=== PATIENT | male | born 1945 | race Caucasian/White ===

== ENCOUNTER 2024-10-11 02:07 | Inpatient (IN) | payer MEDICARE, SELFPAY ==
[2024-10-10 21:24] VITALS: BMI 26.3
[2024-10-10 21:36] LABS: Glucose - Point of Care 226 mg/dl (70-99)
[2024-10-10 21:41] LABS: Hematocrit 34.6 % (39.0-52.0); Hemoglobin 11.8 g/dL (13.0-18.0); Mean Corp Hgb Conc. 34.1 g/dL (33.0-37.0); Mean Corpuscular Volume 88.5 fL (80.0-94.0); Nucleated Red Blood Cells % 0 % (-); Platelet Count 146 10^3/uL (130-400); Red Cell Dist. Width 13.5 % (11.5-14.5)
[2024-10-10 22:00] VITALS: BP 170/76
[2024-10-10 22:02] LABS: ALT (SGPT) 23 U/L (0-50); AST (SGOT) 17 U/L (17-59); Albumin 3.8 g/dl (3.5-5.0); Alkaline Phosphatase 76 U/L (38-126); Blood Urea Nitrogen 43 mg/dl (9-20); Calcium 9.2 mg/dl (8.4-10.2); Carbon Dioxide 20 mmol/L (22-30); Chloride 110 mmol/L (98-107); Estimated Creatinine Clearance 23 ml/min; Glucose 248 mg/dl (70-99); Potassium 6.0 mmol/L (3.5-5.1); Sodium 135 mmol/L (135-145); Total Protein 6.6 g/dl (6.3-8.2); eGFR 27.83
[2024-10-10 22:46] LABS: Urine Character Cloudy (Clear)
[2024-10-10 23:00] VITALS: BP 158/78
--- NOTE | 2024-10-10 23:12 | ED.GENMED ---
History of Present Illness
General
Chief Complaint: Urinary Symptoms
Source: patient
Exam Limitations: none
Time Seen by Provider: 10/10/24 22:17
Nursing documentation reviewed up to this point in time: agreed with
History of Present Illness
History of Present Illness:
The patient is an 79-year-old man with a past medical history of frequent UTIs who was found down by his daughter just prior to arrival. His daughter reports that she was unable to get a hold of him so went to his home to check up on him. His
daughter reports that she was able to see him through the window of his home trying to crawl down his steps. His daughter reports that she broke into his home because she was unable to get through the front door and when she got there, she reports
that her father made it down all the way to the bottom step and seemed to pass out. Patient reports that he does not believe he fell. Patient does have abrasions on his left knee which may have occurred while he was crawling down the steps.
Patient reports that he has been feeling weak for several days. He denies cough, sore throat, nausea, and vomiting. His daughter reports that he has been on multiple rounds of oral antibiotics for urinary tract infection. She reports the last
antibiotic was Bactrim. Patient was also recently evaluated by a urologist and underwent a cystoscope a few days ago for frequent UTIs. The patient arrives fully awake and denies headache, chest pain or shortness of breath.
Past History
Past History
ED Past Medical History: HTN, IDDM and Other (Frequent UTIs)
ED Past Surgical History: Other
Social History
Tobacco: Non-smoker
Alcohol: Other
Drug: None
Personal: Single
Living: alone
Employment: Other
Family History
Family History: Other
Review of Systems
Review of Systems
Allergies reviewed?: Yes
All Other Systems: ROS reviewed and negative except as documented in HPI and ROS
Constitutional: Reports fatigue and chills
EENT: Reports no symptoms
Respiratory: Reports no symptoms
Cardiac: Reports syncope
ABD/GI: Reports anorexia
: Reports no symptoms
Musculoskeletal: Reports no symptoms
Skin: Reports other (Abrasion left patellar area)
Neurological: Reports weakness (Generalized weakness)
Endocrine: Reports no symptoms
Hematologic/Lymphatic: Reports no symptoms
Psychiatric: Reports no symptoms
Phy Exam
Physical Exam
Physical Exam:
Physical Exam
General: no apparent distress, not acutely ill, atraumatic appearing face and head. No scalp contusions
Neck: supple. Nontender C-spine
Heart: s1/s2 regular rate and rhythm,
Lungs: no acute respiratory distress. clear bilaterally, no vertebral spine tenderness. No reproducible chest pain when taking a deep breath
Abdomen: normal bowel sounds. not tender. no CVAT
Neuro: alert and orientedx3. no focal neurological deficits, cranial nerves equal and symmetric bilaterally. Answers all questions appropriately
Skin: Mild skin abrasion left patella
Psychiatric: well kept. interactive and cooperative
Extremities: Nontender upper and lower extremities. Pelvis and hips nontender
Sepsis
Sepsis Screening
Sepsis Assessment: Sepsis Ruled Out
Sepsis Screen
Sepsis Screen: Sepsis Ruled Out
Date: 10/11/24
Time: 00:23
Course
Orders/Labs/Results
Orders:
Orders
10/10/24 21:25
Electrocardiogram (*1) Urgent
Reason for Study: Other
Other Reason for Exam: Possible Sepsis
Cardiac Monitoring- Treatment ONCE
EKG- Treatment ONCE
IV Insert/Care/Rem.- Treatment PRN
O2 Therapy [RESP] Urgent
Titrate/Wean O2 to maintain O2 sat greater than (%): 93
Special Instructions: TO MAINTAIN CONTINUOUS O2 SATS > OR = 93%
Pulse Ox/cont/shift [RESP] Urgent
Quantity: 1
Special Instructions: CONTINUOUS
10/10/24 21:33
CPK [Creatine Phosphokinase] Urgent
Complete Blood Count/With Diff Urgent
Comprehensive Metabolic Panel Urgent
Lactic Acid Q4H
Comment: ON ICE, CANCEL 2ND ORDER IF FIRST LACTIC ACID LEVEL <2
Urinalysis Reflex To Culture Urgent
Date Specimen was Collected: 10/10/24
Time Specimen was Collected: 21:25
Urine Microscopic Reflex Cult Urgent
Blood Culture Q20M
GALA Source: Blood/Venous
Specimen Description:
Comment: Urgent from separate sites. If patient screens positive for possible sepsis
Blood Culture Q20M
GALA Source: Blood/Venous
Specimen Description:
Comment: Urgent from separate sites. If patient screens positive for possible sepsis
Urine Culture Urgent
GALA Source: U
Specimen Description:
Date Specimen was Collected: 10/10/24
Time Specimen was Collected: 21:25
10/10/24 23:03
CT Abd/pel Without Iv Or Oral Urgent
Comment:
Reason For Exam: persistent UTI
Acetaminophen [Tylenol] 1,000 mg PO NOW STA
10/10/24 23:04
CR Chest - 2 Views Urgent
Comment:
Reason For Exam: fever
10/10/24 23:29
COVID-19 Antigen Urgent
Source: Nasal Swab
Troponin I Urgent
Influenza A+B Rapid Molecular Urgent
GALA Source: Nasal Swab
Specimen Description:
10/11/24 00:10
CefTRIAXone [Rocephin] 1,000 mg IV NOW STA
Abnormal Lab Results
10/10/24 10/10/24
21:33 21:34
RBC 3.91 L 10^6/uL
(4.70-6.10)
Hgb 11.8 L g/dL
(13.0-18.0)
Hct 34.6 L %
(39.0-52.0)
Absolute Neuts (auto) 7.0 H 10^3/uL
(1.4-6.5)
Absolute Lymphs (auto) 0.7 L 10^3/uL
(1.2-3.4)
Absolute Monos (auto) 0.8 H 10^3/uL
(0.1-0.6)
Neutrophils % 82.1 H %
(42.2-75.2)
Lymphocytes % 8.4 L %
(20.5-51.1)
Potassium 6.0 H mmol/L
(3.5-5.1)
Chloride 110 H mmol/L
(98-107)
Carbon Dioxide 20 L mmol/L
(22-30)
BUN 43 H mg/dl
(9-20)
Creatinine 2.3 H mg/dL
(0.7-1.3)
Glucose 248 H mg/dl
(70-99)
Ur Occult Blood Reflex 3+ A
(Negative)
Leukocyte Esterase Rfl 3+ A
(Negative)
Urine WBC (Reflex) >100 A /HPF
(0-5)
Urine Bacteria (Reflex) Moderate A
(Negative)
Urine Glucose 2+ A
(Negative)
Urine Albumin (Reflex) 4+ A
(Neg - Trace)
POC Glucose 226 H mg/dl
(70-99)
10/10/24 21:33
10/10/24 21:33
Vital Signs
Initial and Last Documented VS:
Initial Vital Signs
Pulse Resp
101 23
10/10/24 21:25 10/10/24 21:25
Last Documented Vital Signs
Temp Pulse Resp BP Pulse Ox
100.4 F H 88 23 124/68 96
10/10/24 21:26 10/11/24 00:00 10/11/24 00:00 10/11/24 00:00 10/10/24 23:45
MDM/Problems Addressed
Differential Diagnosis Includes:
Acute rhabdo, acute dehydration, acute on chronic UTI
MDM/Problems Addressed:
Patient complains of acute generalized weakness and found to have a fever
Chronic conditions affecting care:
Frequent chronic UTIs
Chronic conditions affecting care: DM
Acute Exacerbation and/or Progression of Chronic Illness:
Patient could have acute exacerbation of chronic UTI, causing generalized weakness and fatigue and fever
Patient is acutely hyperglycemic, likely due to not taking his insulin and having an infection
Acute Exacerbation and/or Progression of Chronic Illness: DM
*Radiology
Radiology exam reviewed: preliminary read by ED provider (Chest x-ray reviewed by me. No acute disease) and radiology read reviewed
*Pulse Oximetry
SaO2: 98
Oxygen Mode of Delivery: Room air
Patient hypoxic: no
*EKG
Interpreted by ED Provider?: Yes
Interpretation: abnormal
Comparison EKG: no comparison EKG present
Rate: normal
Rhythm: sinus
[place]: left axis deviation
Interval: normal interval
QRS Pattern: wide non-specific and left vent hypertrophy
Ischemia: non-specific ST changes
*Bus Van [employer] Interpretation
Rate: normal
Interpretation: normal
Rhythm: sinus
*Critical Care Note
Total Time (30-74mins, 75-104mins- exclusive of procedures): Not Applicable
Data Reviewed
Source: patient and family (Daughter who presents at bedside)
ED Attending Note
-
Portions of this chart may have been created with voice recognition software.� Occasional wrong word or��sound alike� substitutions may have occurred due to the inherent limitations of voice recognition software.
Discharge Plan
Departure
Patient Disposition: Admit
Date of Disposition: 10/10/24
Time of Disposition: 23:29
Admit to: Med/Surg
Presentation/result/management discussed w/ accepting MD/DO: Hospitalist
Patient with high blood pressure during this ER visit?: Yes
Condition: Good
Covid-19: Negative COVID-19
Discharge Problem:
Generalized weakness, Acute UTI, Acute renal failure
Referrals:
Wilfrid Biswas, [Family Provider, Family Practice]
Interventions
Interventions:
*Risk Screen - Suicide Last Done: 10/10/24 21:26
*General Assessment Last Done: 10/10/24 21:26
*Neglect/Abuse Screening Last Done: 10/10/24 21:26
*ED- Fall Risk Assessment Last Done: 10/10/24 21:26
*ED COVID-19 Vaccine History Last Done: 10/10/24 21:26
ED-Male Genitourinary Assessment Last Done: 10/10/24 21:26
Discharge Date and Time
Print Language: [place]
[2024-10-10 23:17] LABS: Urine Red Blood Cell None Seen /HPF (0-2); Urine White Cell >100 /HPF (0-5)
[2024-10-10] MEDS: TYLENOL 1000 MG PO (23:29)
[2024-10-11] VITALS (14 sets, daily range): BP systolic 91–184; BP diastolic 48–89; PULSE 81; O2SAT 96; BMI 26.1
[2024-10-11 00:11] LABS: COVID-19 Antigen Negative (Negative)
[2024-10-11] MEDS: ROCEPHIN 1000 MG IV (00:26)
[2024-10-11 00:29] LABS: Troponin I 0.071 ng/ml
--- NOTE | 2024-10-11 01:55 | HPS.HSE ---
Family Physician
-
Family Physician: Wilfrid Biswas
Chief Complaint
-
Weakness
History of Present Illness
Patient is an 79y M with PMH significant for hypertension and DM-II who presents to ED complaining of weakness, fatigue and possible syncope. History obtained from patient and his family at the bedside. Daughter states that she spoke with
patient last PM and he seemed his normal self. She was unable to get a hold of him all day today. She went to his house this evening and had to break in. She found him crawling down the stairs, confused / 'in and out of consciousness', cool /
clammy and ill-appearing. Patient had been incontinent of urine. Patient states that he did suffer a fall; however, he cannot recite details or note when the fall occurred. He states that he did not strike his head.
Patient has been having issues now for several months with recurrent UTIs.
He was most recently treated with Bactrim which finished about one week ago. Patient reports symptoms of intermittent dysuria, cloudy and malodorous urine. Symptoms improve on abx but hen recur once the medication is completed.
Patient was seen recently by Urology (Dr. Wang at [facility]) and had cystoscopy which was reportedly unremarkable (last week).
Medical History
Past Medical History
Past Medical History: Reports Other
Additional Past Medical History:
Hypertension
DM-II
Recurrent UTIs
BPH
Past Surgical History: Reports None
Social History
Tobacco: Former Smoker
Alcohol: Occasional
Drug: None
Living: Alone
Family History
Family History: Not pertinent
Allergies / Home Medications
Allergies reflects when Allergies were last updated in [employer].
Home Medications with original date entered in [employer]
Allergy/Medication List:
Allergies
Allergy/AdvReac Type Severity Reaction Status Date / Time
No Known Allergies Allergy Unverified 10/10/24 21:26
Home Medications
amlodipine 5 mg tablet 5 mg PO BID 10/11/24
atenolol 25 mg tablet 25 mg PO BID 10/11/24
glimepiride 1 mg tablet 3 mg PO DAILY 10/11/24
icosapent ethyl 1 gram capsule (Vascepa) 2 g PO BID 10/11/24
insulin degludec 100 unit/mL (3 mL) subcutaneous pen (Tresiba FlexTouch U-100 insulin) 50 unit SC HS 10/11/24
lisinopril 20 mg tablet 20 mg PO BID 10/11/24
rosuvastatin 5 mg tablet 5 mg PO HS 10/11/24
sildenafil 50 mg tablet 50 mg PO DAILY PRN ED 10/11/24
tamsulosin 0.4 mg capsule 0.4 mg PO DAILY 10/11/24
Review of Systems
-
History Source: Patient and Family
A 12 point ROS was completed and negative except as noted: Yes
Constitutional: Reports Fatigue; Denies Fever or Chills
EENT: Denies Sore Throat
Respiratory: Denies Cough or Trouble Breathing
Cardiac: Reports Syncope (possible?); Denies Chest Pain or Palpitations
Abdomen/GI: Reports Abdominal Pain; Denies Nausea, Vomiting, Diarrhea, Bloody Stools or Black Stools
: Reports Dysuria, Incontinence and Dark Urine; Denies Frequency
Musculoskeletal: Denies Joint Pain or Edema
Neurological: Reports Weakness; Denies Dizzy or Headache
Psych: Denies Depression or Anxiety
Physical Exam
Vital Signs
Vital Signs
Temp Pulse Resp BP Pulse Ox
100.4 F H 82 22 106/62 94
10/10/24 21:26 10/11/24 01:26 10/11/24 01:26 10/11/24 01:26 10/11/24 01:26
Physical Exam
General: Other (79y M in no acute distress. Appears fatigued.)
HEENT: Other (Dry MM. Neck supple.)
Respiratory: Clear; No Wheezes, Rales or Rhonchi
Cardiac: S1/S2, Regular Rhythm and Murmur (II/ KRISTYN)
GI: Soft, Non Tender, Non Distended and Normal Bowel Sounds
Musculoskeletal: No Clubbing, No Cyanosis and No Edema
Neuro: AO x 3
Laboratory Results
-
10/10/24 21:33
10/10/24 21:33
Laboratory Results
Lactic Acid Cancelled 10/11/24 01:30
Total Bilirubin 0.5 mg/dl (0.2-1.3) 10/10/24 21:33
AST 17 U/L (17-59) 10/10/24 21:33
ALT 23 U/L (0-50) 10/10/24 21:33
Alkaline Phosphatase 76 U/L (38-126) 10/10/24 21:33
Troponin I 0.071 ng/ml H* 10/10/24 23:29
Impression/Plan
-
A/P: Patient is an 79y M with PMH significant for hypertension and DM-II who presents to ED for evaluation of weakness after being 'found down' at home by his daughter.
UTI / Diverticulitis
Possible Colovesicular Fistula
Sepsis secondary to the above
- Admit for further evaluation and treatment.
- Patient presents with fever, tachycardia, tachypnea and UA consistent with infection.
- CT shows air in bladder (? related to cysto of one week ago?) and adjacent diverticulitis changes - ? colovesicular fistula.
- Certainly clinically c/w fistula with repeated / recurrent UTIs despite treatment.
- Review of pharmacy data indicates that patient has been on abx essentially uninterrupted since 05/31. (Bactrim and Macrobid multiple times each. Doxycycline. Augmentin)
- Zosyn for now - renally doses.
- Colorectal Surgery evaluation.
- CT with rectal contrast to evaluate for fistula.
- Follow fever curve, follow-up culture data.
- Follow for clinical improvement.
GWENDOLYN
Hyperkalemia
- SCr = 2.3 compared to recent baseline of 1.8 (which itself was noted to be elevated from his prior baseline).
- Renal impairment also seems new and coincident with urinary issues over the past few months.
- ? secondary to med effect / Bactrim with concurrent lisinopril, etc.
- Hold further nephrotoxic agents. Hold lisinopril acutely.
- IVF support overnight.
- Follow renal function for improvement and to establish a new, accurate baseline.
- CT done in the ED this evening with no evidence of obstruction, etc.
Found Down
Generalized Weakness
- Likely combination of acute / chronic infection, worsening renal function, med effects, etc.
- Treat infection, GWENDOLYN as noted above.
- Hold tamsulosin acutely (newly started in August).
- PT / OT evaluations.
Benign Hypertension
- Hold lisinopril as noted above.
- Holding parameters for amlodipine and atenolol.
- Adjust med regimen as needed for adequate control / avoidance of hypotension.
DM-II
- Stable. Hold sulfonylurea.
- Decrease basal insulin acutely. Follow and cover with SSI if needed.
- Update A1C.
- Concern for intermittent hypoglycemia given insulin / sulfonylureas and progressive decline in renal function.
Abnormal Troponin
- Patient with no complaints of chest pain, dyspnea, etc.
- EKG is without evidence of acute ischemia - with no prior tracings to compare.
- Follow troponin to peak. Suspect non-IN elevation due to infection, renal impairment, etc.
BPH
- Hold tamsulosin and Viagra.
- Bladder scan protocol.
DVT Prophylaxis: SCDs
Code Status: Full
--- NOTE | 2024-10-11 03:00 | PTCARENOTE ---
Patient admitted to floor via stretcher from ED. Patient c/o LE weakness. Daughter and granddaughter at bedside. Patient AAOx3, can be forgetful at times. Troponin drawn upon arrival to floor. K+ noted to be 6 in ED. No medication given, notified
JOSE MARTIN Biggs of K+. No new orders received at this time. BMP ordered for the am. Call easley and fall precautions reviewed with patient. Call easley left with in reach. Will continue to monitor.
[2024-10-11] MEDS: NSS 1000 IV ×3 (04:15→21:28)
[2024-10-11] MEDS: ZOSYN 50 IV ×4 (04:22→21:44)
--- NOTE | 2024-10-11 04:34 | PTCARENOTE ---
This RN TT house provider about pt's potassium level of 6.0 upon arrival to floor. No new orders given at this time. Instructed to wait and see potassium level at 0600 lab draw.
[2024-10-11 05:29] LABS: Troponin I 0.071 ng/ml
--- NOTE | 2024-10-11 06:16 | PTCARENOTE ---
Patient admitted to floor via stretcher from ED. Patient c/o LE weakness. Daughter and granddaughter at bedside. Patient AAOx3, can be forgetful at times. Troponin drwn upon arrival too
[2024-10-11 06:21] LABS: Glucose - Point of Care 179 mg/dl (70-99)
[2024-10-11] MEDS: TENORMIN 25 MG PO ×2 (08:03→21:30)
[2024-10-11] MEDS: NORVASC 5 MG PO ×2 (08:03→21:30)
--- NOTE | 2024-10-11 10:38 | CON.CRS ---
Consultation
-
Date/Time Consultation Requested: 10/11/2024, 03:43
Date/Time Consultation Performed: 10/11/2024, 09:30
Requesting Provider: Anibal Paz DO
Performing Provider: Ti Beverly MD
Reason for Consultation: diverticulitis
Medical History
-
Chief Complaint: weakness/fatigue
History of Present Illness:
79yo male with a history of recurrent UTIs and DM II presents to [place] ER with weakness, fatigue, and syncope. Patient's history mostly obatained from chart. The daughter had to break into his house last night as she was unable to get ahold of
him. He was crawling down the stairs and confused and was ill-appearing. He was also incontinent of urine. He had UTIs recently and has been treated with Bactrim. Last week he had a cystoscopy by Dr. Wang at [facility] which apparently showed no acute
findings.
In the ER his WBC is 8.5. His tmax was 100.4. He was started on IV zosyn. CT of the abdomen and pelvis shows mild pericolic stranding about the distal descending colon as well as diverticulosis concerning for early or mild acute diverticulitis.
Considering the posterior location, epiploic appendicitis is possible as well, although no fat containing lesion is noted. This may be sequela of previous infection/inflammation. No evidence of perforation or abscess formation. There is no history
of colonoscopy or prior CT in our system for comparison. Given the above findings, we have been consulted for further surgical opinion.
Past Medical History
Past Medical History: HTN, NIDDM and Other (UTIs, BPH)
Past Surgical History: None
Social History
Tobacco: Former Smoker
Alcohol: Occasional
Drug: None
Living: Alone
Family History
Family History: Reviewed & Not Pertinent
Allergies / Home Medications
Allergy/AdvReac Type Severity Reaction Status Date / Time
No Known Allergies Allergy Unverified 10/10/24 21:26
�Medication �Instructions �Recorded �Confirmed �Type
amlodipine 5 mg tablet 5 mg PO BID 10/11/24 10/11/24 History
atenolol 25 mg tablet 25 mg PO BID 10/11/24 10/11/24 History
glimepiride 1 mg tablet 3 mg PO DAILY 10/11/24 10/11/24 History
icosapent ethyl 1 gram capsule 2 g PO BID 10/11/24 10/11/24 History
(Vascepa)
insulin degludec 100 unit/mL (3 50 unit SC HS 10/11/24 10/11/24 History
mL) subcutaneous pen (Tresiba
FlexTouch U-100 insulin)
lisinopril 20 mg tablet 20 mg PO BID 10/11/24 10/11/24 History
rosuvastatin 5 mg tablet 5 mg PO HS 10/11/24 10/11/24 History
sildenafil 50 mg tablet 50 mg PO DAILY PRN ED 10/11/24 10/11/24 History
tamsulosin 0.4 mg capsule 0.4 mg PO DAILY 10/11/24 10/11/24 History
Review of Systems
-
History Source: Patient
Constitutional: Fatigue and Other (weakness, syncope)
: Incontinence
A 10 point review of systems was completed, and was negative except as per HPI.
Physical Exam
Vital Signs
Temp 100.1 F 10/11/24 07:55
Pulse 93 10/11/24 08:03
Resp Rate 17 10/11/24 07:55
Blood pressure 184/89 10/11/24 08:03
SaO2 98 10/11/24 07:55
10/10/24 10/11/24 10/12/24
06:59 06:59 06:59
Actual Weight 73.255 kg
Body Mass Index (BMI) 26.1
Lab Results / Allergies
WBC 8.5 10^3/uL (4.8-10.8) 10/10/24 21:33
Hgb 11.8 g/dL (13.0-18.0) L 10/10/24 21:33
Hct 34.6 % (39.0-52.0) L 10/10/24 21:33
Plt Count 146 10^3/uL (130-400) 10/10/24 21:33
Abs Immat Gran (auto) 0.0 10^3/uL (0-0.05) 10/10/24 21:
Neutrophils % 82.1 % (42.2-75.2) H 10/10/24 21:33
Allergy/AdvReac Type Severity Reaction Status Date / Time
No Known Allergies Allergy Unverified 10/10/24 21:26
Physical Exam
General: Well Developed, Well Nourished and No Apparent Distress
GI: Soft, Non Tender and Non Distended
Skin: Warm and Dry
Neuro: Awake
Data Reviewed
-
CT Scan: Image Personally Visualized and interpreted, Report Reviewed by me and Discussed with Patient
Labs: Labs Reviewed by me, Discussed with Physician and Discussed with Patient
Old Records: Reviewed
Assessment / Plan
-
Assessment: 79yo male with a history of recurrent UTIs recently on Bactrim presents to [place] ER with falls, syncope, weakness, and urinary incontinence, found to have possible diverticulitis
Plan:
-No plans for surgery at this time. No concerns for active diverticulitis.
-Continue with IV antibiotics/IVFs
-Diet: advance as tolerated
-Manage UTI at this time
-Outpatient follow up to rule out colovesical fistula with CT po/rectal/IV contrast and colonoscopy. Follow with Dr. Beverly in the office in 2 weeks.
--- NOTE | 2024-10-11 10:39 | W.PN.HOSP.TC ---
Today's Communication/Plan
-
Repeat CT scan of the abdomen and pelvis with rectal contrast to reevaluate for colovesicular fistula.
Empiric antibiotics pending cultures.
Colorectal surgery evaluation
Bladder scan.
Hold nephrotoxic agents including lisinopril.
Serial blood glucose monitoring while on reduced dose of insulin and off sulfonylurea.
Assessment / Plan
Assessment / Plan
A/P: Patient is an 79y M with PMH significant for hypertension and DM-II who presents to ED for evaluation of weakness after being 'found down' at home by his daughter.
UTI / Diverticulitis
Possible Colovesicular Fistula
Sepsis secondary to the above
- Patient presents with fever, tachycardia, tachypnea and UA consistent with infection.
- CT shows air in bladder (? related to cysto of one week ago?) and adjacent diverticulitis changes - ? colovesicular fistula.
- Certainly clinically c/w fistula with repeated / recurrent UTIs despite treatment.
- Review of pharmacy data indicates that patient has been on abx essentially uninterrupted since 05/31. (Bactrim and Macrobid multiple times each. Doxycycline. Augmentin)
- Zosyn for now - renally doses.
- Colorectal Surgery evaluation.
- CT with rectal contrast to evaluate for fistula.
- Follow fever curve, follow-up culture data.
- Follow for clinical improvement.
GWENDOLYN
Hyperkalemia
- SCr = 2.3 compared to recent baseline of 1.8 (which itself was noted to be elevated from his prior baseline).
- Renal impairment also seems new and coincident with urinary issues over the past few months.
- ? secondary to med effect / Bactrim with concurrent lisinopril, etc.
- Hold further nephrotoxic agents. Hold lisinopril acutely.
- Bladder scan
- IVF support overnight.
- Follow renal function for improvement and to establish a new, accurate baseline.
- CT done in the ED this evening with no evidence of obstruction, etc.
Found Down
Generalized Weakness
- Likely combination of acute / chronic infection, worsening renal function, med effects, etc.
-Neurologic exam with no focal findings
- Treat infection, GWENDOLYN as noted above.
- Hold tamsulosin acutely (newly started in August).
- PT / OT evaluations.
Benign Hypertension
- Hold lisinopril as noted above.
- Holding parameters for amlodipine and atenolol.
- Adjust med regimen as needed for adequate control / avoidance of hypotension.
DM-II
- Stable. Hold sulfonylurea.
- Decrease basal insulin acutely. Follow and cover with SSI if needed.
- Update A1C.
- Concern for intermittent hypoglycemia given insulin / sulfonylureas and progressive decline in renal function.
Abnormal Troponin
- Patient with no complaints of chest pain, dyspnea, etc.
- EKG is without evidence of acute ischemia - with no prior tracings to compare.
- Follow troponin to peak. Suspect non-SD elevation due to infection, renal impairment, etc.
BPH
- Hold tamsulosin and Viagra.
- Bladder scan protocol.
DVT Prophylaxis: SCDs
Code Status: Full
Anticipated Discharge: > 48 hours
Subjective/Interval History
-
Date of Service: October 11, 2024
Objective Data
-
Labs:
Laboratory Results
10/11/24
06:00
WBC Pending
Hgb Pending
Hct Pending
Plt Count Pending
Sodium Pending
Potassium Pending
Chloride Pending
Carbon Dioxide Pending
BUN Pending
Creatinine Pending
Glucose Pending
Calcium Pending
Vital Signs:
Vital Signs
Temp Pulse Resp BP Pulse Ox
100.1 F 93 17 184/89 98
10/11/24 07:55 10/11/24 08:03 10/11/24 07:55 10/11/24 08:03 10/11/24 07:55
Physical Exam
-
General: Well Developed and No Apparent Distress
HEENT: Normocephalic, Atraumatic and Moist Mucous Membranes
Respiratory: Clear to Auscultation
Cardiac: Regular Rhythm and S1/S2; Negative Murmur, Rub or Gallop
GI: Soft, Nontender, Nondistended and Normal Bowel Sounds; Negative Organomegaly
Rectal: Deferred by Provider
Musculoskeletal: No Clubbing, No Cyanosis and No Edema
Skin: Negative Rash
Neuro: Awake, Alert, Oriented, AO x 3 and Nonfocal/Grossly Intact
[2024-10-11 11:18] LABS: Blood Urea Nitrogen 48 mg/dl (9-20); Calcium 8.9 mg/dl (8.4-10.2); Carbon Dioxide 18 mmol/L (22-30); Chloride 113 mmol/L (98-107); Estimated Creatinine Clearance 22 ml/min; Glucose 215 mg/dl (70-99); Potassium 5.1 mmol/L (3.5-5.1); Sodium 139 mmol/L (135-145); eGFR 26.44
[2024-10-11 11:22] LABS: Troponin I 0.062 ng/ml
[2024-10-11 11:37] LABS: Glucose - Point of Care 228 mg/dl (70-99)
[2024-10-11 12:03] LABS: Hematocrit 34.5 % (39.0-52.0); Hemoglobin 11.4 g/dL (13.0-18.0); Mean Corp Hgb Conc. 33.0 g/dL (33.0-37.0); Mean Corpuscular Volume 87.8 fL (80.0-94.0); Platelet Count 143 10^3/uL (130-400); Red Cell Dist. Width 13.5 % (11.5-14.5)
[2024-10-11 12:30] LABS: Troponin I 0.058 ng/ml
[2024-10-11] MEDS: NOVOLOG FLEXPEN-LOW RESISTANCE 2 UNITS SC (13:16)
[2024-10-11 13:23] LABS: Glycohemoglobin (HgbA1c) 8.3 % (4.0-5.6)
--- NOTE | 2024-10-11 14:54 | PTCARENOTE ---
Lab informed this RN of critical lab value, positive blood cx in progress, made aware.
--- NOTE | 2024-10-11 15:36 | CON.ID ---
Consultation
-
Date/Time Consultation Requested: October 11, 2024 1515
Date/Time Consultation Performed: October 11, 2024 1540
Requesting Provider: Dr. Martín Peng
Performing Provider: Dr. Jazmine Woods
Reason for Consultation: Emphysematous cystitis
Chief Complaint / Past History
Chief Complaint
Urine frequency and weakness
History of Present Illness
History obtained from the patient as well as from daughter at bedside. He is an 79-year-old male with history of diabetes mellitus, hypertension, BPH who presented to the hospital October 10 when he was found down and confused. Per daughter
patient has been having symptomatic urinary tract infection since May 2024. Symptoms consistent of dysuria, frequency, malodorous cloudy urine. He was placed on multiple courses of antibiotics Bactrim, Macrobid, doxycycline, Augmentin almost
continuously. Symptoms but improved while on antibiotic. However few days after completion of antibiotic, urine symptoms would recur. Last week he had cystoscopy done and was told unremarkable. He finished a course of Bactrim last week.
Yesterday patient felt unwell and very weak. He was experiencing dysuria. He fell and unable to get up. He did not answer his doctor's call all day. When she went to his house last night, she found him on the ground crawling. He was confused.
He was brought to the ER with temperature 100.4. CT of the abdomen pelvis showed large amount of air in the bladder. There was concern for possible [place] vesicle fistula and therefore repeat CT of the abdomen pelvis with rectal contrast obtained
which showed persistent air within the bladder with multiple pockets of air within the bladder wall, many bladder diverticula; no contrast noted in the bladder/no fistula noted. Patient started on Zosyn. The admission blood culture is positive for
E. coli. Today patient reports he is feeling better. No flank pain.
Past History
Additional Past Medical History:
Diabetes mellitus
Hypertension
BPH
Recurrent UTI
Allergy History:
No Known Allergies Allergy (Unverified 10/10/24 21:26)
Medications Reviewed: Yes
Current Antibiotics:
Zosyn
Social History
Tobacco: Former Smoker
Alcohol: Occasional
Drug: None
Living: Alone
Family History
Family History: Not Pertinent
Review of Systems
Review of Systems
General: Fever, Chills and Change in Appetite
HEENT: Negative Sinus Problems, Headache or Pharyngitis
Cardiovascular: Negative Chest Pain or Dyspnea
Respiratory: Negative Dyspnea or Cough
Gasteroenterology: Negative Nausea, Vomiting or Diarrhea
Genital / Urological: Dysuria; Negative Flank Pain
Endocrine: Weakness and Fatigue
All systems: All other systems were reviewed and were negative
Vital Signs
Temp Pulse Resp BP Pulse Ox
98.0 F 84 17 152/77 99
10/11/24 11:00 10/11/24 11:27 10/11/24 11:00 10/11/24 11:27 10/11/24 11:00
Selected Entries
10/10/24
21:26
Temp 100.4 F H
Physical Exam
Physical Exam
Constitutional: Comfortable
Head: Other (No frontal or maxillary sinus tenderness)
Cardiovascular: Regular Rate and S1/S2
Pulmonary: Clear
Gastrointestinal: Soft, Non Tender, Non Distended and Normal Bowel Sounds
Genito-Urinary: Negative CVA Tenderness
Extremities: Negative Edema
Wound: Other (Abrasion over left knee)
Neurological: AO x 3
Lab / Diagnostic Study Results
10/11/24 11:50
10/11/24 10:40
Abs Immat Gran (auto) 0.0 10^3/uL (0-0.05) 10/10/24 21:33
Absolute Neuts (auto) 7.0 10^3/uL (1.4-6.5) H 10/10/24 21:33
Absolute Lymphs (auto) 0.7 10^3/uL (1.2-3.4) L 10/10/24 21:33
Absolute Monos (auto) 0.8 10^3/uL (0.1-0.6) H 10/10/24 21:33
Absolute Basos (auto) 0.0 10^3/uL (0-0.2) 10/10/24 21:33
Immature Gran % 0.5 % (0-0.5) 10/10/24 21:33
Neutrophils % 82.1 % (42.2-75.2) H 10/10/24 21:
Lymphocytes % 8.4 % (20.5-51.1) L 10/10/24 21:
Monocytes % 8.8 % (1.7-9.3) 10/10/24 21:
Eosinophils % 0.0 % (0-6) 10/10/24 21:
Basophils % 0.2 % (0-2) 10/10/24:
Lactic Acid Cancelled 10/11/24 01:30
Ur Squamous Epith Cells 6-10 /LPF (Few) 10/10/24 21:33
Microbiology Results
Micro:
10/10/24 21:33 Blood Culture - Preliminary
Blood/Venous Positive culture in progress
Gram Stain - Preliminary
10/10/24 23:29 Influenza Types A & B (SUELLEN) - Final
Nasal Swab Negative for Influenza A & B, NAAT
Negative results must be combined with clinical observations
and patient history.
Nucleic Acid Amplification test (NAAT)performed on the
[employer] platform.
10/10/24 21:33 Urine Culture - Pending
Urine
10/10/24 21:33 Blood Culture - Pending
Blood/Venous
10/11/24 CT a/p with rectal contrast: The urinary bladder is mildly distended. There is large amount of air within the bladder. There are multiple pockets of air within the bladder wall. There are many small bladder diverticula. The prostate gland is
mildly enlarged.
10/10/24 CT a/p wo contrast: Large volume of air in the bladder possibly due to recent instrumentation. There is no such history, this raises concern for infection. Questionable air in the bladder wall versus small bladder diverticula. Emphysematous
cystitis cannot be excluded. Numerous bladder diverticula.
Assessment / Plan
#Complicated UTI/emphysematous cystitis
# E. coli bacteremia from UTI
# Fever
-Urine culture pending
- Will repeat blood cultures x 2 in a.m.
- Can continue with Zosyn pending culture data
-Trend temp/WBC
# Conditions [facility] REPRESENTATIVE
Diabetes mellitus
Hypertension
BPH
Recurrent UTI
[2024-10-11 17:41] LABS: Glucose - Point of Care 186 mg/dl (70-99)
[2024-10-11] MEDS: NOVOLOG FLEXPEN-LOW RESISTANCE 1 UNITS SC (18:11)
[2024-10-11] MEDS: TYLENOL 650 MG PO (18:13)
[2024-10-11] MEDS: LANTUS 0.2 UNITS SC (21:36)
[2024-10-11 21:38] LABS: Glucose - Point of Care 186 mg/dl (70-99)
[2024-10-12] VITALS (7 sets, daily range): BP systolic 130–166; BP diastolic 56–87; PULSE 67–68; BMI 26.3
[2024-10-12] MEDS: ZOSYN 50 IV ×4 (04:23→22:43)
[2024-10-12] MEDS: NSS 1000 IV (04:25)
[2024-10-12 08:21] LABS: Glucose - Point of Care 130 mg/dl (70-99)
[2024-10-12] MEDS: NOVOLOG FLEXPEN-LOW RESISTANCE SC (08:25)
[2024-10-12] MEDS: TENORMIN 25 MG PO ×2 (08:27→20:07)
[2024-10-12] MEDS: NORVASC 5 MG PO ×2 (08:28→20:07)
[2024-10-12] MEDS: TYLENOL 650 MG PO ×2 (08:28→20:05)
--- NOTE | 2024-10-12 10:01 | W.PN.HOSP.TC ---
Today's Communication/Plan
-
Continue antibiotic for now, pending final urine culture and sensitivity
Assessment / Plan
Assessment / Plan
Impression:
patient is an 79y M with PMH significant for hypertension and DM-II who presents to ED for evaluation of weakness after being 'found down' at home by his daughter.
Assessment/plan:
UTI / Diverticulitis
E. coli Bacteriemia
Sepsis secondary to the above
- Patient presents with fever, tachycardia, tachypnea and UA consistent with infection.
- CT shows air in bladder (? related to cysto of one week ago?) and adjacent diverticulitis changes - ? colovesicular fistula.
- Certainly clinically c/w fistula with repeated / recurrent UTIs despite treatment.
- Review of pharmacy data indicates that patient has been on abx essentially uninterrupted since 05/31. (Bactrim and Macrobid multiple times each. Doxycycline. Augmentin)
- Zosyn for now - renally doses.
- Colorectal Surgery evaluation.
- CT with rectal contrast to evaluate for fistula which came back shows: No evidence of colovesical fistula.
Persistent findings which can be seen with emphysematous cystitis. Bladder diverticula.
- Follow fever
Blood culture positive for E. coli, urine culture positive for gram-negative rods.
Appreciate infectious disease input
GWENDOLYN
Hyperkalemia
Follow labs, avoid neurotoxic
Lisinopril on hold
Status post fall
Patient with Generalized Weakness, found down by his daughter
- Likely combination of acute / chronic infection, worsening renal function, med effects, etc.
-Neurologic exam with no focal findings
- Treat infection, GWENDOLYN as noted above.
- Hold tamsulosin acutely (newly started in August).
- PT / OT evaluations.
Benign Hypertension
- Hold lisinopril as noted above.
- Holding parameters for amlodipine and atenolol.
- Adjust med regimen as needed for adequate control / avoidance of hypotension.
DM-II
- Stable. Hold sulfonylurea.
- Decrease basal insulin acutely. Follow and cover with SSI if needed.
-Hemoglobin A1c 8.3
- Concern for intermittent hypoglycemia given insulin / sulfonylureas and progressive decline in renal function.
Abnormal Troponin
- Patient with no complaints of chest pain, dyspnea, etc.
- EKG is without evidence of acute ischemia - with no prior tracings to compare.
- Follow troponin to peak. Suspect non-AK elevation due to infection, renal impairment, etc.
BPH
- Hold tamsulosin and Viagra.
- Bladder scan protocol.
CODE STATUS: Full code
DVT prophylaxis: Lovenox
Diet: Regular diet
Communication: Discussed with significant other at bedside.
Disposition: Continue antibiotic for now, pending final urine culture and sensitivity
Total time spent on today's encounter was 65 minutes which included time spent in counseling the patient/family regarding diagnosis and treatment plan as listed above, goals of care, and symptom management. Case was discussed with nursing staff,
specialists, and care coordinators/case management. All labs and imaging personally reviewed by me. Remainder the time spent in detailed review of previous records, lab data, imaging, and other medical provider documentation.
Anticipated Discharge: 24 - 48 hours
Subjective/Interval History
-
Date of Service: October 12, 2024
Patient seen and examined at bedside, denies any chest pain or shortness of breath, no abdominal pain, no nausea, no vomiting, no diarrhea or constipation.
Discussed with family at bedside.
Objective Data
-
Vital Signs:
Vital Signs
Temp Pulse Resp BP Pulse Ox
98.7 F 79 17 151/87 96
10/12/24 07:00 10/12/24 08:27 10/12/24 07:00 10/12/24 08:27 10/12/24 07:00
I&O
10/11/24 10/12/24 10/13/24
06:59 06:59 06:59
Intake Total 2495 / 2495
Output Total 1170 / 1170
Balance 1325 / 1325
Physical Exam
-
General: Well Developed, Well Nourished, No Apparent Distress and Comfortable
HEENT: Normocephalic, Atraumatic, Moist Mucous Membranes, No Ptosis, PERRLA and Nose Appears Normal
Respiratory: Clear to Auscultation and Non Labored Respirations
Cardiac: Regular Rhythm and S1/S2
Breast: Deferred by me
GI: Soft, Nontender, Nondistended and Normal Bowel Sounds
Genito-urinary: No Costovertebral Tender
Musculoskeletal: No Clubbing, No Cyanosis and No Edema
Skin: Warm
Neuro: Awake, Alert, Oriented, AO x 3 and No Motor Deficits
Psych: Calm
Data Reviewed
-
Diagnostic Radiology: Image personally visualized and interpreted and Report Reviewed by me
CT Scan: Image personally visualized and interpreted and Report Reviewed by me
Ultrasound: Image personally visualized and interpreted and Report Reviewed by me
MRI: Image personally visualized and interpreted and Report Reviewed by me
Medical Tests (Nuc Med, Echo etc): Image personally visualized and interpreted and Report Reviewed by me
Labs: Labs Reviewed by me
Old Records: Reviewed
[2024-10-12 11:39] LABS: Glucose - Point of Care 210 mg/dl (70-99)
--- NOTE | 2024-10-12 11:45 | PTCARENOTE ---
Pt c/o increased anxiety and stated, 'I am unable to take deep breathes'. Pt requested medication to help her sleep. Pt made aware that it is daytime. Pt requested anxiety medication. MD made aware.
[2024-10-12] MEDS: NOVOLOG FLEXPEN-LOW RESISTANCE 2 UNITS SC ×2 (12:33→17:10)
--- NOTE | 2024-10-12 14:41 | W.PN.ID1 ---
Date of Service
Date of Service: October 12, 2024
Today's Communication
Continue Zosyn for now.
Assessment / Plan
#Complicated UTI/emphysematous cystitis
# E. coli bacteremia from UTI
# Fever - resolved
-Urine culture GNR
- Will repeat blood cultures x 2 pending
-continue with Zosyn pending final culture data
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
Diabetes mellitus
Hypertension
BPH
Recurrent UTI
Chief Complaint
-: UTI and Bacteremia
Subjective / Review of Systems
Feels much improved. Urine symptoms resolved.
Vital Signs / Physical Exam
Vital Signs
Vital Signs
Temp Pulse Resp BP Pulse Ox
98.2 F 67 16 142/77 94
10/12/24 11:00 10/12/24 11:00 10/12/24 11:00 10/12/24 11:00 10/12/24 11:00
Physical Exam
Constitutional: No Acute Distress and Comfortable
Cardiovascular: Regular Rate and S1/S2
Pulmonary: Clear
Gastrointestinal: Soft, Non Tender and Non Distended
Genito-Urinary: Negative CVA Tenderness
Neurological: AO x 3
Objective Data
Lab Data
Lab Results
10/11/24 11:50
10/11/24 10:40
Estimated Creat Clear 22 ml/min 10/11/24 10:40
Lactic Acid Cancelled 10/11/24 01:30
Total Bilirubin 0.5 mg/dl (0.2-1.3) 10/10/24 21:33
AST 17 U/L (17-59) 10/10/24 21:33
ALT 23 U/L (0-50) 10/10/24 21:33
Alkaline Phosphatase 76 U/L (38-126) 10/10/24 21:33
Most recent labs reviewed.
Micro Results:
10/10/24 21:33 Urine Culture - Preliminary
Urine Gram negative bacilli
10/10/24 21:33 Blood Culture - Preliminary
Blood/Venous Escherichia coli
Gram Stain - Preliminary
10/12/24 08:16 Blood Culture - Pending
Blood/Venous
10/12/24 05:14 Blood Culture - Pending
Blood/Venous
10/10/24 21:33 Blood Culture - Preliminary
Blood/Venous No Growth in 24 hours- Final report to follow
10/10/24 23:29 Influenza Types A & B (SUELLEN) - Final
Nasal Swab Negative for Influenza A & B, NAAT
Negative results must be combined with clinical observations
and patient history.
Nucleic Acid Amplification test (NAAT)performed on the
[employer] platform.
10/11/24 CT a/p with rectal contrast: The urinary bladder is mildly distended. There is large amount of air within the bladder. There are multiple pockets of air within the bladder wall. There are many small bladder diverticula. The prostate gland is
mildly enlarged.
10/10/24 CT a/p wo contrast: Large volume of air in the bladder possibly due to recent instrumentation. There is no such history, this raises concern for infection. Questionable air in the bladder wall versus small bladder diverticula. Emphysematous
cystitis cannot be excluded. Numerous bladder diverticula.
--- NOTE | 2024-10-12 16:51 | PTCARENOTE ---
Pt had large, loose BM. made aware, new order provided, see MAR.
[2024-10-12 16:54] LABS: Glucose - Point of Care 217 mg/dl (70-99)
[2024-10-12] MEDS: VISBIOME 2 CAP PO (17:11)
[2024-10-12 21:31] LABS: Glucose - Point of Care 199 mg/dl (70-99)
[2024-10-12] MEDS: LANTUS 0.2 UNITS SC (22:42)
[2024-10-13 03:00] VITALS: BP 149/73
[2024-10-13] MEDS: ZOSYN 50 IV (04:23)
[2024-10-13 05:54] LABS: Hematocrit 31.1 % (39.0-52.0); Hemoglobin 10.3 g/dL (13.0-18.0); Mean Corp Hgb Conc. 33.1 g/dL (33.0-37.0); Mean Corpuscular Volume 87.6 fL (80.0-94.0); Platelet Count 154 10^3/uL (130-400); Red Cell Dist. Width 13.4 % (11.5-14.5)
[2024-10-13 06:00] VITALS: BMI 26.2
[2024-10-13 06:34] LABS: Blood Urea Nitrogen 33 mg/dl (9-20); Calcium 8.4 mg/dl (8.4-10.2); Carbon Dioxide 19 mmol/L (22-30); Chloride 115 mmol/L (98-107); Estimated Creatinine Clearance 28 ml/min; Glucose 129 mg/dl (70-99); Potassium 3.9 mmol/L (3.5-5.1); Sodium 140 mmol/L (135-145); eGFR 35.00
[2024-10-13 07:38] VITALS: BP 163/78
[2024-10-13 07:47] LABS: Glucose - Point of Care 121 mg/dl (70-99)
[2024-10-13] MEDS: NOVOLOG FLEXPEN-LOW RESISTANCE SC ×2 (07:47→12:10)
[2024-10-13] MEDS: VISBIOME 2 CAP PO (08:42)
[2024-10-13] MEDS: NORVASC 5 MG PO (08:43)
[2024-10-13] MEDS: TENORMIN 25 MG PO (08:43)
--- NOTE | 2024-10-13 09:55 | W.PN.ID1 ---
Date of Service
Date of Service: October 13, 2024
Today's Communication
-DC Zosyn.
- Give cipro 500mg po x 1 today then dc home on cipro 500mg po daily (10/14 through 10/24/24).
Assessment / Plan
#Complicated UTI/emphysematous cystitis
# E. coli bacteremia from UTI
# Fever - resolved
-Urine culture E. coli (resistant to t/sulfa, Augmentin, doxycycline pt previously received)
- repeat blood cultures x 2 neg to date
-DC Zosyn.
- Give cipro 500mg po x 1 today then dc home on cipro 500mg po daily (10/14 through 10/24/24).
# Conditions [employer]
Diabetes mellitus
Hypertension
CKD3
BPH
Recurrent UTI
Chief Complaint
-: UTI and Bacteremia
Vital Signs / Physical Exam
Vital Signs
Vital Signs
Temp Pulse Resp BP Pulse Ox
97.1 F 69 16 163/78 98
10/13/24 07:38 10/13/24 08:43 10/13/24 07:38 10/13/24 08:43 10/13/24 07:38
Objective Data
Lab Data
Lab Results
10/13/24 05:14
10/13/24 05:14
Estimated Creat Clear 28 ml/min 10/13/24 05:14
Lactic Acid Cancelled 10/11/24 01:30
Total Bilirubin 0.5 mg/dl (0.2-1.3) 10/10/24 21:33
AST 17 U/L (17-59) 10/10/24 21:33
ALT 23 U/L (0-50) 10/10/24 21:33
Alkaline Phosphatase 76 U/L (38-126) 10/10/24 21:33
Most recent labs reviewed.
Micro Results:
10/10/24 21:33 Urine Culture - Final
Urine Escherichia coli
10/10/24 21:33 Blood Culture - Preliminary
Blood/Venous Escherichia coli
Gram Stain - Preliminary
10/12/24 08:16 Blood Culture - Preliminary
Blood/Venous No Growth in 24 hours- Final report to follow
10/12/24 05:14 Blood Culture - Preliminary
Blood/Venous No Growth in 24 hours- Final report to follow
10/10/24 21:33 Blood Culture - Preliminary
Blood/Venous No Growth in 48 hours- Final report to follow
10/10/24 23:29 Influenza Types A & B (SUELLEN) - Final
Nasal Swab Negative for Influenza A & B, NAAT
Negative results must be combined with clinical observations
and patient history.
Nucleic Acid Amplification test (NAAT)performed on the
[employer] platform.
RUN DATE: 10/13/24 [facility] *LIVE* PAGE 1
RUN TIME: 0954 Specimen Inquiry
PATIENT: DUGLAS WATKINS LOC: [facility] U #: [id number]
AGE/SX: 79/M Race: WHITE ROOM: 339 RE10/11/[address]: Saray Fair MD : 1945 BED: 01 DIS:
STATUS: ADM IN TLOC:
SPEC #: [id number] [place]: 10/10/24 STATUS: RES REQ #: [id number]
RECD: 10/10/[address]: Carlos East DO
SOURCE: BLOOD/VE ENTR: 10/10/24-[address]: Dept [facility]
SPDESC:
ORDERED: Blood Culture, Gram Stain-bld
QUERIES: Comment
Urgent from separate sites. If patient screens positive for possible sepsis
Procedure Result Verified
Blood Culture Preliminary 09/
Positive for Escherichia coli.
Performed by [employer] PCR methodology.
Organism 1 Escherichia coli
1. Escherichia coli
M.I.C. RX
--------- ---
Amoxicillin/Potas. Clavulanate 16/8 I
Ampicillin >16 R
Ampicillin/Sulbactam >16/8 R
Aztreonam <=4 S
Cefazolin >16 R
Cefepime <=2 S
Ceftazidime <=1 S
Ceftriaxone <=1 S
Ertapenem <=0.5 S
Ciprofloxacin <=0.25 S
Gentamicin <=2 S
Meropenem <=1 S
Piperacillin/Tazobactam >64 R
Tetracycline >8 R
Tobramycin <=2 S
Trimethoprim/Sulfamethoxazole >2/38 R
RUN DATE: 10/13/24 [facility] *LIVE* PAGE 1
RUN TIME: 954 Specimen Inquiry
PATIENT: DUGLAS WATKINS LOC: [facility] U #: [id number]
AGE/SX: 79/M Race: WHITE ROOM: [facility] RE10/11/[address]: Saray Fair MD : 1945 BED: 01 DIS:
STATUS: ADM IN TLOC:
SPEC #: [id number] [place]: 10/10/24 STATUS: COMP REQ #: [id number]
RECD: 10/10/[address]: Carlos East DO
SOURCE: URINE ENTR: 10/10/24-[address]: Dept Physician Emergency
SPDESC:
ORDERED: Urine Culture
QUERIES: Date Specimen was Collected 10/10/24
Time Specimen was Collected 2124
Procedure Result Verified
Urine Culture Final 10/13/24-912
CC: Greater than 100,000 CFU/ML Escherichia coli
Organism 1 Escherichia coli
1. Escherichia coli
M.I.C. RX
--------- ---
Amoxicillin/Potas. Clavulanate 16/8 I
Ampicillin >16 R
Ampicillin/Sulbactam >16/8 R
Aztreonam <=4 S
Cefazolin 16 R
Cefazolin interpretations for E. coli, K. pneumo and
P. mirabilis for uncomplicated uti are as follows:
<=16 Susceptible
> 16 Resistant
Cefepime <=2 S
Ceftazidime <=1 S
Ceftriaxone <=1 S
Ertapenem <=0.5 S
Ciprofloxacin <=0.25 S
Gentamicin <=2 S
Meropenem <=1 S
Nitrofurantoin-Urine Only <=32 S
Piperacillin/Tazobactam >64 R
Tetracycline >8 R
Tobramycin <=2 S
Trimethoprim/Sulfamethoxazole >2/38 R
10/11/24 CT a/p with rectal contrast: The urinary bladder is mildly distended. There is large amount of air within the bladder. There are multiple pockets of air within the bladder wall. There are many small bladder diverticula. The prostate gland is
mildly enlarged.
10/10/24 CT a/p wo contrast: Large volume of air in the bladder possibly due to recent instrumentation. There is no such history, this raises concern for infection. Questionable air in the bladder wall versus small bladder diverticula. Emphysematous
cystitis cannot be excluded. Numerous bladder diverticula.
Care Review
Plan reviewed with: Physician (Dr. Fair)
[2024-10-13] MEDS: ZOSYN IV (10:18)
--- NOTE | 2024-10-13 10:28 | W.PN.HOSP.TC ---
Today's Communication/Plan
-
Discharge home in [facility]
Assessment / Plan
Assessment / Plan
Impression:
79-year-old male with history of diabetes mellitus, hypertension, BPH who presented to the hospital October 10 when he was found down and confused. Patient admitted with weakness after being 'found down' at home by his daughter. Patient had
recent cystoscopy done before admission and CT abdomen pelvis shows possible air in the bladder and diverticulitis with concern of colovesicular fistula, colorectal surgery consulted and CT with rectal contrast done which shows no evidence of
colovesicular fistula, post blood culture, urine culture came back positive for E. coli, patient was given IV antibiotic in form of Zosyn, seen by infectious disease and will be discharged on oral Cipro
Assessment/plan:
UTI / Diverticulitis
E. coli Bacteriemia
Sepsis secondary to the above
- Patient presents with fever, tachycardia, tachypnea and UA consistent with infection.
- CT shows air in bladder (? related to cysto of one week ago?) and adjacent diverticulitis changes - ? colovesicular fistula.
- Certainly clinically c/w fistula with repeated / recurrent UTIs despite treatment.
- Review of pharmacy data indicates that patient has been on abx essentially uninterrupted since 05/31. (Bactrim and Macrobid multiple times each. Doxycycline. Augmentin)
- Zosyn for now - renally doses.
- Colorectal Surgery evaluation.
- CT with rectal contrast to evaluate for fistula which came back shows: No evidence of colovesical fistula.
Persistent findings which can be seen with emphysematous cystitis. Bladder diverticula.
- Follow fever
Blood culture positive for E. coli, urine culture positive for gram-negative rods.
Appreciate infectious disease input
Patient will be discharged on oral Cipro for additional 11 days.
GWENDOLYN
Hyperkalemia
Follow labs, avoid nephrotoxic
Lisinopril on hold (hold on dc)
Status post fall
Patient with Generalized Weakness, found down by his daughter
- Likely combination of acute / chronic infection, worsening renal function, med effects, etc.
-Neurologic exam with no focal findings
- Treat infection, GWENDOLYN as noted above.
- Hold tamsulosin acutely (newly started in August).
- PT / OT evaluations.
Benign Hypertension
- Hold lisinopril as noted above.
- Holding parameters for amlodipine and atenolol.
- Adjust med regimen as needed for adequate control / avoidance of hypotension.
/
Lisinopril will be held on discharge secondary to elevated creatinine and hyperkalemia on admission of 6.0
Blood pressure is elevated so we will increase atenolol to 50 twice daily on discharge
DM-II
- Stable. Hold sulfonylurea.
- Decrease basal insulin acutely. Follow and cover with SSI if needed.
-Hemoglobin A1c 8.3
- Concern for intermittent hypoglycemia given insulin / sulfonylureas and progressive decline in renal function.
Abnormal Troponin
- Patient with no complaints of chest pain, dyspnea, etc.
- EKG is without evidence of acute ischemia - with no prior tracings to compare.
- Follow troponin to peak. Suspect non-OR elevation due to infection, renal impairment, etc.
BPH
- Hold tamsulosin and Viagra.
- Bladder scan protocol.
CODE STATUS: Full code
DVT prophylaxis: SCDs
Diet: DM diet
Communication: Discussed with significant other at bedside.
[facility]
Total time spent on today's encounter was 65 minutes which included time spent in counseling the patient/family regarding diagnosis and treatment plan as listed above, goals of care, and symptom management. Case was discussed with nursing staff,
specialists, and care coordinators/case management. All labs and imaging personally reviewed by me. Remainder the time spent in detailed review of previous records, lab data, imaging, and other medical provider documentation.
Anticipated Discharge: Today
Subjective/Interval History
-
Date of Service: October 13, 2024
Patient seen and examined at bedside, denies any chest pain or shortness of breath, no abdominal pain, no nausea, no vomiting, no diarrhea or constipation.
Objective Data
-
Labs:
Laboratory Results
10/13/24
05:14
WBC 5.0
Hgb 10.3 L
Hct 31.1 L
Plt Count 154
Sodium 140
Potassium 3.9
Chloride 115 H
Carbon Dioxide 19 L
BUN 33 H
Creatinine 1.9 H
Glucose 129 H
Calcium 8.4
Vital Signs:
Vital Signs
Temp Pulse Resp BP Pulse Ox
97.1 F 69 16 163/78 98
10/13/24 07:38 10/13/24 08:43 10/13/24 07:38 10/13/24 08:43 10/13/24 07:38
I&O
10/12/24 10/13/24 10/14/24
06:59 06:59 06:59
Intake Total 2495 / 2495 990 / 990
Output Total 1170 / 1170 325 / 325
Balance 1325 / 1325 665 / 665
Physical Exam
-
General: Well Developed, Well Nourished, No Apparent Distress and Comfortable
HEENT: Normocephalic, Atraumatic, Moist Mucous Membranes, No Ptosis, PERRLA and Nose Appears Normal
Respiratory: Clear to Auscultation and Non Labored Respirations
Cardiac: Regular Rhythm and S1/S2
Breast: Deferred by me
GI: Soft, Nontender, Nondistended and Normal Bowel Sounds
Genito-urinary: No Costovertebral Tender
Musculoskeletal: No Clubbing, No Cyanosis and No Edema
Skin: Warm
Neuro: Awake, Alert, Oriented, AO x 3 and No Motor Deficits
Psych: Calm
[2024-10-13] MEDS: CIPRO 500 MG PO (10:56)
[2024-10-13 11:05] VITALS: BP 164/82
--- NOTE | 2024-10-13 11:05 | W.DCSUMMARY ---
Discharge Summary
Discharge Data
Date of Admission: 10/11/24
Date of Discharge: 10/13/24
Total time spent discharging patient (in min): 40
-
Pending Results: No
Hospital Course
Hospital course
79-year-old male with history of diabetes mellitus, hypertension, BPH who presented to the hospital October 10 when he was found down and confused. Patient admitted with weakness after being 'found down' at home by his daughter. Patient had
recent cystoscopy done before admission and CT abdomen pelvis shows possible air in the bladder and diverticulitis with concern of colovesicular fistula, colorectal surgery consulted and CT with rectal contrast done which shows no evidence of
colovesicular fistula, post blood culture, urine culture came back positive for E. coli, patient was given IV antibiotic in form of Zosyn, seen by infectious disease and will be discharged on oral Cipro
Cipro Held on discharge.
Glipizide Held on discharge.
Lantus lowered to 20 units on Dc.
During hospitalization patient was treated from the following
UTI / Diverticulitis
E. coli Bacteriemia
Sepsis secondary to the above
- Patient presents with fever, tachycardia, tachypnea and UA consistent with infection.
- CT shows air in bladder (? related to cysto of one week ago?) and adjacent diverticulitis changes - ? colovesicular fistula.
- Certainly clinically c/w fistula with repeated / recurrent UTIs despite treatment.
- Review of pharmacy data indicates that patient has been on abx essentially uninterrupted since 05/31. (Bactrim and Macrobid multiple times each. Doxycycline. Augmentin)
- Zosyn for now - renally doses.
- Colorectal Surgery evaluation.
- CT with rectal contrast to evaluate for fistula which came back shows: No evidence of colovesical fistula.
Persistent findings which can be seen with emphysematous cystitis. Bladder diverticula.
- Follow fever
Blood culture positive for E. coli, urine culture positive for gram-negative rods.
Appreciate infectious disease input
Patient will be discharged on oral Cipro for additional 11 days.
GWENDOLYN
Hyperkalemia
Follow labs, avoid nephrotoxic
Lisinopril on hold (hold on dc)
Status post fall
Patient with Generalized Weakness, found down by his daughter
- Likely combination of acute / chronic infection, worsening renal function, med effects, etc.
-Neurologic exam with no focal findings
- Treat infection, GWENDOLYN as noted above.
- Hold tamsulosin acutely (newly started in August).
- PT / OT evaluations.
Benign Hypertension
- Hold lisinopril as noted above.
- Holding parameters for amlodipine and atenolol.
- Adjust med regimen as needed for adequate control / avoidance of hypotension.
10/12
Lisinopril will be held on discharge secondary to elevated creatinine and hyperkalemia on admission of 6.0
Blood pressure is elevated so we will increase atenolol to 50 twice daily on discharge
DM-II
- Stable. Hold sulfonylurea.
- Decrease basal insulin acutely. Follow and cover with SSI if needed.
-Hemoglobin A1c 8.3
- Concern for intermittent hypoglycemia given insulin / sulfonylureas and progressive decline in renal function.
Abnormal Troponin
- Patient with no complaints of chest pain, dyspnea, etc.
- EKG is without evidence of acute ischemia - with no prior tracings to compare.
- Follow troponin to peak. Suspect non-OK elevation due to infection, renal impairment, etc.
BPH
- Hold tamsulosin and Viagra.
- Bladder scan protocol.
CODE STATUS: Full code
DVT prophylaxis: SCDs
Diet: DM diet
Communication: Discussed with significant other at bedside.
Disposition: Discharged home in [facility]
Total time spent on today's encounter was 40 minutes which included time spent in counseling the patient/family regarding diagnosis and treatment plan as listed above, goals of care, and symptom management. Case was discussed with nursing staff,
specialists, and care coordinators/case management. All labs and imaging personally reviewed by me. Remainder the time spent in detailed review of previous records, lab data, imaging, and other medical provider documentation.
Anticipated Discharge: Today
Discharge Plan
-
Patient Disposition: Home with Home Care
Discharge Diagnosis/Procedures: UTI / Diverticulitis
E. coli Bacteremia
GWENDOLYN
Hyperkalemia
Hypertension.
diabetes
Diet: 2 Gram Sodium and Diabetic, Carb Controlled
Activity: With assistance and As tolerated
Other Services: PT and OT
Activity Restrictions/Additional Instructions:
If taking antacid, iron, zinc, magnesium, aluminum, calcium, or sucralfate, give these products 6 hours before or 2 hours after ciprofloxacin.
Referrals:
Nephrology/Hypertension Spec. [Provider Group] - in two to four weeks
Wilfrid Biswas DO [Family Provider, Family Practice]
Ti Beverly MD [Active, ColoRectal] - in two to four weeks
Prescriptions:
New
ciprofloxacin HCl 500 mg Tablet
500 mg PO DAILY@1100 Qty: 11 0RF
Probiotic 20 billion cell capsule
20,000 mmu cells PO DAILY Qty: 14 0RF
Continued
sildenafil 50 mg Tablet
50 mg PO DAILY PRN (Reason: ED)
amlodipine 5 mg Tablet
5 mg PO BID
tamsulosin 0.4 mg Capsule
0.4 mg PO DAILY
rosuvastatin 5 mg Tablet
5 mg PO HS
icosapent ethyl [Vascepa] 1 gram Capsule
2 g PO BID
Changed
atenolol 25 mg Tablet
50 mg PO BID Qty: 0 0RF
insulin degludec [Tresiba FlexTouch U-100] 100 unit/mL (3 mL) Insulin Pen
20 unit SC HS Qty: 0 0RF
Held
lisinopril 20 mg Tablet
20 mg PO BID
Hold Instructions: Until follow-up with PCP/nephrology
glimepiride 1 mg Tablet
3 mg PO DAILY
Hold Instructions: Hold until follow-up with PCP
Rx Instructions:
1mg qAM and 2mg qPM
Discharge Orders:
Discharge Patient (As Directed); Ordered 10/13/24
Ordered By: Saray Fair
Discharge Date and Time
Print Language: ESTONIAN
[2024-10-13 11:21] LABS: Glucose - Point of Care 255 mg/dl (70-99)
--- NOTE | 2024-10-13 12:20 | CM ---
CM met with Jc, who is alert and oriented, to complete IA. He was admitted from home when his daughter found him confused, weak, and crawling around on the floor.
He lives alone in an apartment currently, but will be moving in with his daughter and his significant other at the end of October when his lease is up.
Pt is alert and oriented, reports being (I) in amb and adls [employer].
PT recommends home health at discharge. Pt agreeable to [facility].
IMM reviewed, signed and pt provided with a copy.
Plan: Discharge to home with [facility]. Daughter is driving him to her home.
[facility]
== END 2024-10-13 12:59 | disposition home health service (06) | DRG 872 ==
LOC: 3 WEST ACU 02:07
PROVIDERS: Emergency Medicine; Internal Medicine; ADMITTING PHYSICIAN Hospitalist; ATTENDING PHYSICIAN General Practice; CONSULT PHYSICIAN Internal Medicine Infectious Disease; CONSULT PHYSICIAN Surgery; EMERGENCY PHYSICIAN Emergency Medicine; FAMILY PHYSICIAN Family Medicine
DX: A41.51 Sepsis due to Escherichia coli [E. coli] (principal); N17.9 Acute kidney failure, unspecified; K57.32 Diverticulitis of large intestine without perforation or abscess without bleeding; N30.80 Other cystitis without hematuria; E87.5 Hyperkalemia; N40.0 Benign prostatic hyperplasia without lower urinary tract symptoms; I10 Essential (primary) hypertension; E11.9 Type 2 diabetes mellitus without complications; S80.212A Abrasion, left knee, initial encounter; W22.8XXA Striking against or struck by other objects, initial encounter; Y93.89 Activity, other specified; Y92.008 Other place in unspecified non-institutional (private) residence as the place of occurrence of the external cause; Z87.440 Personal history of urinary (tract) infections; Z87.891 Personal history of nicotine dependence; Z79.84 Long term (current) use of oral hypoglycemic drugs; Z79.4 Long term (current) use of insulin; Z11.52 Encounter for screening for COVID-19
CPT/HCPCS: 71046; 74176; 80048; 80053; 81003; 81015; 82550; 82962; 83036; 83605; 84484; 85025; 85027; 87040; 87077; 87086; 87154; 87186; 87205; 87502; 87811; 93005; 94760; 96374; 97162; 99285